=== PATIENT | male | born 1960 | race Caucasian/White ===

== ENCOUNTER 2024-01-28 09:06 | Outpatient (OUT) | payer BC, SELFPAY ==
--- NOTE | 2024-01-28 09:24 | CA_ITS ---
Patient Name: STUART PARADA MR#: [id number] : 1960 Exam Date: 01/28/2024 Ordering Doctor: DR MYLES SALCIDO . ECHOCARDIOGRAM REPORT PROCEDURE: CA ECHO DOPPLER COMPLETE INDICATIONS: New murmur. HTN, Palpitations COMPARISON: None. DESCRIPTION: COMPLETE ECHOCARDIOGRAM Real-time transthoracic echocardiography with 2D, M-mode, spectral and color flow Doppler performed. QUALITY: Technical quality was adequate. LEFT VENTRICLE: Normal chamber size. Mild concentric left ventricular hypertrophy. Global left ventricular systolic function is normal. LV EF: Estimated left ventricular ejection fraction is 65-70 % DIASTOLIC: Normal diastolic function. ATRIAL SEPTUM: LEFT ATRIUM: Normal chamber size. RIGHT ATRIUM: Normal chamber size. RIGHT VENTRICLE: Normal chamber size. Normal right ventricular systolic function. TRICUSPID VALVE: Normal mobility and thickness. No stenosis with trivial regurgitation. No evidence of pulmonary hypertension. RVSP 30 mmHg MITRAL VALVE: Normal mobility and thickness. No evidence of mitral valve stenosis. There is no mitral annular calcification. No mitral regurgitation. AORTIC VALVE: Normal trileaflet appearance. No visible sclerosis. Normal leaflet mobility. No evidence of aortic valve stenosis. No aortic regurgitation. AORTIC ROOT: Normal diameter and appearance. PULMONIC VALVE: Normal thickness and mobility. No stenosis. No regurgitation. PERICARDIUM: No evidence of pericardial effusion. IVC: Collapses with inspirations. Normal size. PLEURA: CONCLUSION: 1. Mild concentric left ventricular hypertrophy with normal systolic function. LVEF is 65 to 70%. 2. Normal right ventricular size and systolic function. 3. Normal diastolic function. 4. No significant valvular dysfunction. 5. Normal right-sided pressures. 6. No pericardial effusion. Adult Echocardiography Procedure Report Left Ventricle LVEDD (3.7 - 5.6 cm): 4.33 cm LVESD (2.2 - 4.0 cm): 2.73 cm LVIVS thickness (0.6 - 1.2 cm): 1.11 cm LVPW thickness (0.5 - 1.0 cm): 1.06 cm e': 0.09 m/s E - e': 7.87 LVOT Max Gradient: 6.46 mm[Hg] LVOT Area (cm2): 1.27 m/s Peak Velocity (LVOT): 1.27 m/s Mean Velocity (LVOT): 0.86 m/s LVOT Diameter 2.05 cm Left Ventricular Ejection Fraction: 65-70 % Left Atrium LA Volume Index (2D A2C): 24.24 ml/m2 Left Atrium Systolic Dimension: 3.99 cm Mitral Valve MV E to A Ratio: 1.11 Mitral Valve A-Wave Peak Velocity: 0.65 m/s Mitral Valve E-Wave Peak Velocity: 0.72 m/s Right Ventricle RV Internal Diastolic Dimension: 2.81 cm Aorta AO Root Diam: 3.37 cm Ascending Ao Diam: 3.17 cm Aortic Valve AoV Area (Peak Hany): 3.29 cm2, 3.29 cm2 AoV Area (VTI): 3.37 cm2, 3.37 cm2 Peak Velocity(Antegrade Flow): 1.28 m/s Peak Gradient(Antegrade Flow): 6.56 mm[Hg] Mean Velocity(Antegrade Flow): 0.89 m/s Mean Gradient(Antegrade Flow): 3.60 mm[Hg] Velocity Time Integral: 25.89 cm Tricuspid Valve Peak Velocity (Regurgitant Flow): 2.44 m/s, 2.58 m/s, 2.55 m/s Pulmonic Valve Mean Gradient: 2.80 mm[Hg], 2.64 mm[Hg] Mean Velocity: 0.81 m/s, 0.79 m/s Peak Velocity: 1.09 m/s Peak Gradient: 4.98 mm[Hg], 4.61 mm[Hg] Right Atrium Right Atrium Systolic Pressure: 21.49 ml, 21.49 ml Dictated by: Philippe Tello M.D. on 01/28/2024 at 19:31 Approved by: Philippe Tello M.D. on 01/28/2024 at 19:34
== END 2024-01-28 09:07 | disposition home or self-care (01) ==
LOC: CARD 09:10
PROVIDERS: PCP Family Medicine; Visit Provider Family Medicine
DX: R01.1 Cardiac murmur, unspecified (principal); I10 Essential (primary) hypertension; R00.2 Palpitations
CPT/HCPCS: 93306